=== PATIENT | female | born 1995 | race Caucasian/White ===

== ENCOUNTER 2020-06-30 18:55 | Emergency (ER) | payer OTHER ==
[~2020-06-30] VITALS: Ht 157.5 cm; Wt 74.8 kg
[~2020-06-30 18:55] MED LIST: KETO10TA2 PO; ULTRACET PO
== END 2020-06-30 19:50 | disposition home or self-care (01) ==
LOC: ER 18:55
DX: M94.0 Chondrocostal junction syndrome [Tietze] (principal)

== ENCOUNTER 2022-10-15 10:36 | Emergency (ER) | payer OTHER ==
[~2022-10-15] VITALS: Ht 157.5 cm; Wt 65.8 kg
== END 2022-10-15 15:12 | disposition home or self-care (01) ==
LOC: ER 10:36
DX: K29.70 Gastritis, unspecified, without bleeding (principal); Z20.822 Contact with and (suspected) exposure to COVID-19

== ENCOUNTER 2023-08-23 15:40 | Emergency (ER) | payer OTHER ==
[~2023-08-23] VITALS: Ht 157.5 cm; Wt 68.5 kg
[2023-08-23] MEDS ORDERED: PRENA1 TRUE CO1 EACH (16:05)
[2023-08-23] MEDS ORDERED: FOLIC ACID20 MG (16:05)
[2023-08-23 19:12] LABS: HEMATOCRIT 32.8 % (36.0-45.00); HEMOGLOBIN 10.9 g/dL (12.0-15.00); MEAN CELL VOLUME 85.3 fL (80.00-100.00); MEAN CORPUSCULAR HEMOGLOBIN 28.3 pg (27.00-32.0); MEAN CORPUSCULAR HGB CONC 33.2 g/dl (32.0-36.0); PLATELET COUNT 236 K/uL (150-450); RED BLOOD COUNT 3.85 M/uL (4.00-6.00); RED CELL DISTRIBUTION WIDTH 13.6 % (11.5-14.5)
== END 2023-08-23 21:43 | disposition home or self-care (01) ==
LOC: ER 15:40
PROVIDERS: Emergency Medicine
DX: K05.219 Aggressive periodontitis, localized, unspecified severity (principal)

== ENCOUNTER 2024-01-10 12:05 | Inpatient (IN) | payer OTHER ==
[~2024-01-10] VITALS: Ht 157.5 cm; Wt 77.1 kg
[~2024-01-10 12:05] MED LIST changes: +FOLIC ACID20 MG; +PRENA1 TRUE CO1 EACH
[2024-01-20] MEDS ORDERED: AMPICILLIN SODIUM 2,000 MG VIAL ONE (05:29)
[2024-01-20] MEDS ORDERED: AMPICILLIN SODIUM 2,000 MG VIAL IV STA (05:29)
[2024-01-20] MEDS ORDERED: RINGERS SOLUTION,LACTATED 1,000 ML IV SCH (05:30)
[2024-01-20] MEDS ORDERED: OXYTOCIN 500 ML IV SCH (06:45)
[2024-01-20 07:41] LABS: HEMATOCRIT 32.4 % (36.0-45.00); HEMOGLOBIN 11.1 g/dL (12.0-15.00); MEAN CORPUSCULAR HEMOGLOBIN 29.1 pg (27.00-32.0); MEAN CORPUSCULAR HGB CONC 34.2 g/dl (32.0-36.0); PLATELET COUNT 142 K/uL (150-450); RED BLOOD COUNT 3.81 M/uL (4.00-6.00); RED CELL DISTRIBUTION WIDTH 13.7 % (11.5-14.5)
[2024-01-20] MEDS ORDERED: MEPERIDINE HCL/PF 50 MG/ML VIAL IV STA (07:43)
[2024-01-20] MEDS ORDERED: PROMETHAZINE HCL 25 MG/ML AMPUL IV STA (07:44)
[2024-01-20 07:56] LABS: PH,URINE 7.5 (5.0-8.0); URINE APPEARANCE Cloudy; URINE BILIRRUBIN Negative (NEGATIVE); URINE BLOOD Moderate; URINE COLOR Yellow; URINE GLUCOSE Negative (NEGATIVE); URINE LEUKOCYTE Moderate; URINE NITRATE Negative; URINE PROTEIN Trace (NEGATIVE)
[2024-01-20 07:58] LABS: URINE BACTERIA 195.2 uL (0.0-1933); URINE EPITHELIAL CELLS 26.1 uL (0.0-38.8); URINE RBC 269.8 uL (0.0-20.8); URINE WBC 366.3 uL (0.0-23.2)
[2024-01-20 08:08] LABS: INR < 0.93; PARTIAL THROMBOPLASTIN TIME 26.8 SECONDS (22.0-34.0); PROTHROMBIN TIME 9.6 SECONDS (9.0-11.5)
[2024-01-20 08:25] LABS: ALBUMIN 2.7 gm/dL (3.4-5.0); BILIRUBIN TOTAL 0.34 mg/dL (0.3-1.2); CALCIUM 8.8 mg/dL (8.5-10.1); CREATININE SERUM 0.51 mg/dL (0.55-1.02); GFR 144.65; GLOBULINA 3.7 G/DL (2.4-3.5); POTASSIUM 3.87 mEq/L (3.5-5.1); TOTAL PROTEIN 6.4 gm/dL (6.4-8.2)
[2024-01-20] MEDS ORDERED: AMPICILLIN SODIUM 1,000 MG VIAL IV SCH (09:00)
[2024-01-20] MEDS ORDERED: ERYTHROMYCIN BASE 1 GM TUBE OP ONE ×2 (09:03→11:00)
[2024-01-20] MEDS ORDERED: CHLORHEXIDINE GLUCONATE 120 ML BOTTLE TOP ONE ×2 (09:03→11:00)
[2024-01-20] MEDS ORDERED: OXYTOCIN 20 UNITS/1000ML RL PIGGYBAG IV ONE ×2 (09:03→11:00)
[2024-01-20] MEDS ORDERED: NALOXONE HCL 0.4 MG/ML AMPUL ONE (09:49)
[2024-01-20] MEDS ORDERED: OxyCODONE HCL/APAP UD (PERCOCET) PO PRN (11:00)
[2024-01-20] MEDS ORDERED: ACETAMINOPHEN 325 MG TABLET PO PRN (11:00)
[2024-01-20] MEDS ORDERED: LIDOCAINE HCL 1% 200MG/20ML VIAL IJ ONE (11:00)
[2024-01-20] MEDS ORDERED: HYDROCORTISONE 2.5% 30 GM TUBE RECTAL SCH (13:00)
[2024-01-20] MEDS ORDERED: BENZOCAINE/MENTHOL 90 ML BOTTLE TOP SCH (13:00)
[2024-01-21 02:04] LABS: HEMATOCRIT 28.6 % (36.0-45.00); HEMOGLOBIN 9.6 g/dL (12.0-15.00); MEAN CELL VOLUME 84.4 fL (80.00-100.00); MEAN CORPUSCULAR HEMOGLOBIN 28.3 pg (27.00-32.0); MEAN CORPUSCULAR HGB CONC 33.5 g/dl (32.0-36.0); PLATELET COUNT 139 K/uL (150-450); RED BLOOD COUNT 3.39 M/uL (4.00-6.00); RED CELL DISTRIBUTION WIDTH 14.1 % (11.5-14.5)
== END 2024-01-22 12:17 | disposition home or self-care (01) | DRG 807 ==
LOC: LDR 01-20 05:22 → OB/GYN 01-20 05:22
PROVIDERS: ADMIT Specialist; ATTEND Specialist
PROC: 10E0XZZ Delivery of Products of Conception, External Approach (ICD-10-PCS; principal; 2024-01-20)
PROC: 0W8NXZZ Division of Female Perineum, External Approach (ICD-10-PCS; 2024-01-20)
PROC: 0UQMXZZ Repair Vulva, External Approach (ICD-10-PCS; 2024-01-20)
PROC: 4A1HXCZ Monitoring of Products of Conception, Cardiac Rate, External Approach (ICD-10-PCS; 2024-01-20)
DX: O71.82 Other specified trauma to perineum and vulva (principal); Z37.0 Single live birth; O99.824 Streptococcus B carrier state complicating childbirth; Z3A.38 38 weeks gestation of pregnancy; Z20.822 Contact with and (suspected) exposure to COVID-19

== ENCOUNTER → 2025-03-12 | Emergency (ER) | payer OTHER ==
[~2025-03-12] VITALS: Ht 157.5 cm; Wt 68.5 kg
[~2025-03-12] MED LIST changes: +ACETAMINOPHEN 500 MG GEL..CAP PO ONE; +ORPHENADRINE CITRATE 30 MG/ML AMPUL IM ONE; +ORPHENADRINE CITRATE 30 MG/ML AMPUL ONE
[2025-03-12 21:48] VITALS: BP 101/65; O2SAT 99
[2025-03-13 00:01] LABS: BASO % 0.3 % (0.1-1.2); EOS # 0.06 (0.04-0.54); EOS % 0.5 % (0.7-7.0); HEMATOCRIT 32.7 % (34.1-44.9); HEMOGLOBIN 11.3 g/dL (11.2-15.7); LYMPH # 2.93 (1.18-3.74); LYMPH % 26.2 % (19.3-53.1); MEAN CORPUSCULAR HEMOGLOBIN 28.6 pg (25.6-32.2); MONO # 0.67 (0.24-0.82); NEUT # 7.43 (1.56-6.13); NEUT % 66.3 % (34.0-71.1); PLATELET COUNT 227 K/uL (163-369); RED BLOOD COUNT 3.95 M/uL (3.93-5.22); RED CELL DISTRIBUTION WIDTH 12.7 % (11.6-14.4)
[2025-03-13 00:45] LABS: PH,URINE 6.5 (5.0-8.0); URINE APPEARANCE Cloudy; URINE BILIRRUBIN Negative (NEGATIVE); URINE BLOOD Negative; URINE COLOR Yellow; URINE GLUCOSE Negative (NEGATIVE); URINE KETONE Negative (NEGATIVE); URINE LEUKOCYTE Small; URINE NITRATE Negative; URINE PROTEIN Negative (NEGATIVE)
[2025-03-13 00:49] LABS: URINE BACTERIA 7034.3 uL (0.0-1933); URINE EPITHELIAL CELLS 144.8 uL (0.0-38.8); URINE WBC 128.5 uL (0.0-23.2)
[2025-03-13 00:52] LABS: ALBUMIN 3.4 gm/dL (3.4-5.0); BILIRUBIN TOTAL 0.4 mg/dL (0.3-1.2); CALCIUM 8.5 mg/dL (8.5-10.1); CREATININE SERUM 0.46 mg/dL (0.55-1.02); GFR 161.75; GLOBULINA 3.6 G/DL (2.4-3.5); POTASSIUM 4.31 mEq/L (3.5-5.1)
[2025-03-13 01:19] LABS: URINE CAST 0.73 uL (0.0-1.40)
[2025-03-13 01:38] LABS: URINE TRICHOMONAS FEW
== END | disposition home or self-care (01) ==
LOC: ER 21:29
PROVIDERS: General Practice
DX: O26.899 Other specified pregnancy related conditions, unspecified trimester (principal); Z3A.16 16 weeks gestation of pregnancy; R10.2 Pelvic and perineal pain

== ENCOUNTER 2025-06-30 14:23 | Emergency (ER) | payer OTHER ==
[~2025-06-30] VITALS: Ht 157.5 cm; Wt 79.4 kg
[~2025-06-30 14:23] MED LIST changes: -ACETAMINOPHEN 500 MG GEL..CAP PO ONE; -ORPHENADRINE CITRATE 30 MG/ML AMPUL IM ONE; -ORPHENADRINE CITRATE 30 MG/ML AMPUL ONE
[2025-06-30 14:32] VITALS: BP 123/76; O2SAT 99
[2025-06-30 16:26] LABS: BASO % 0.3 % (0.1-1.2); EOS # 0.04 (0.04-0.54); EOS % 0.4 % (0.7-7.0); LYMPH # 2.02 (1.18-3.74); LYMPH % 22.4 % (19.3-53.1); MEAN PLATELET VOLUME 12.30 fl (9.4-12.4); MONO # 0.71 (0.24-0.82); MONO % 7.9 % (4.7-12.5); NEUT # 6.14 (1.56-6.13); NEUT % 68.0 % (34.0-71.1); RED CELL DISTRIBUTION WIDTH 12.6 % (11.6-14.4)
[2025-06-30 16:55] LABS: ALT/SGPT 14.0 U/L (12-78); AST/SGOT 21.0 U/L (15-37); BILIRUBIN TOTAL 0.45 mg/dL (0.3-1.2); BUN CREA RATIO 16.0 (7.0-25.0); CREATININE SERUM 0.55 mg/dL (0.55-1.02); GFR 131.61; GLOBULINA 4.0 G/DL (2.4-3.5); GLUCOSE FASTING 106.0 mg/dL (65-100); OSMOLALITY SERUM 277.0 MOSM/KG (275-295)
[2025-06-30 17:01] LABS: URINE APPEARANCE Cloudy; URINE BILIRRUBIN Negative (NEGATIVE); URINE BLOOD Negative; URINE COLOR Yellow; URINE GLUCOSE Negative (NEGATIVE); URINE KETONE Negative (NEGATIVE); URINE LEUKOCYTE Moderate; URINE NITRATE Negative; URINE PROTEIN Negative (NEGATIVE); URINE UROBILINOGEN 1.0 E.U./dl
[2025-06-30 17:05] LABS: URINE BACTERIA 967.0 uL (0.0-1933); URINE EPITHELIAL CELLS 15.6 uL (0.0-38.8); URINE WBC 65.9 uL (0.0-23.2)
[2025-06-30 17:14] LABS: URINE CAST 0.00 uL (0.0-1.40); URINE RBC 1.0 uL (0.0-20.8)
[2025-06-30] MEDS ORDERED: DUI500 PO (18:15)
== END 2025-06-30 18:36 | disposition home or self-care (01) ==
LOC: ER 14:23
PROVIDERS: General Practice
DX: O99.891 Other specified diseases and conditions complicating pregnancy (principal); Z3A.31 31 weeks gestation of pregnancy; R30.0 Dysuria

== ENCOUNTER 2025-08-12 00:38 | Inpatient (IN) | payer OTHER ==
[~2025-08-12] VITALS: Ht 157.5 cm; Wt 78.9 kg
[2025-08-12] VITALS (8 sets, daily range): BP systolic 110–143; BP diastolic 58–90
[~2025-08-12 00:38] MED LIST changes: +DUI500 PO
[2025-08-12] MEDS ORDERED: AMPICILLIN SODIUM 2,000 MG VIAL IV STA (00:40)
[2025-08-12] MEDS ORDERED: RINGERS SOLUTION,LACTATED 1,000 ML IV SCH (00:45)
[2025-08-12] MEDS ORDERED: AMPICILLIN TRI500 MG PO (01:03)
[2025-08-12 01:23] LABS: BASO % 0.5 % (0.1-1.2); EOS # 0.02 (0.04-0.54); EOS % 0.2 % (0.7-7.0); LYMPH # 2.70 (1.18-3.74); LYMPH % 29.3 % (19.3-53.1); MONO # 0.66 (0.24-0.82); MONO % 7.2 % (4.7-12.5); NEUT # 5.62 (1.56-6.13); NEUT % 61.2 % (34.0-71.1); RED CELL DISTRIBUTION WIDTH 13.3 % (11.6-14.4)
[2025-08-12 01:25] LABS: URINE APPEARANCE Clear; URINE BILIRRUBIN Negative (NEGATIVE); URINE BLOOD Large; URINE COLOR Yellow; URINE GLUCOSE Negative (NEGATIVE); URINE KETONE Negative (NEGATIVE); URINE LEUKOCYTE Small; URINE NITRATE Negative; URINE UROBILINOGEN 1.0 E.U./dl
[2025-08-12 01:32] LABS: URINE BACTERIA 55.1 uL (0.0-1933); URINE EPITHELIAL CELLS 41.5 uL (0.0-38.8); URINE RBC 110.7 uL (0.0-20.8); URINE WBC 21.2 uL (0.0-23.2)
[2025-08-12 01:36] LABS: URINE CAST 0.29 uL (0.0-1.40); URINE PROTEIN 100 (NEGATIVE)
[2025-08-12 01:41] LABS: INR < 0.93
[2025-08-12 01:45] LABS: ALT/SGPT 16.0 U/L (12-78); AST/SGOT 19.0 U/L (15-37); BILIRUBIN TOTAL 0.36 mg/dL (0.3-1.2); BUN CREA RATIO 20.0 (7.0-25.0); CREATININE SERUM 0.55 mg/dL (0.55-1.02); GFR 130.68; GLOBULINA 3.6 G/DL (2.4-3.5); GLUCOSE FASTING 87.0 mg/dL (65-100); OSMOLALITY SERUM 274.0 MOSM/KG (275-295)
[2025-08-12] MEDS ORDERED: AMPICILLIN SODIUM 1,000 MG VIAL IV SCH (04:00)
[2025-08-12] MEDS ORDERED: OXYTOCIN 20 UNITS/1000ML RL PIGGYBAG IV ONE (05:47)
[2025-08-12] MEDS ORDERED: LIDOCAINE HCL 1% 10ML VIAL ONE (05:47)
[2025-08-12] MEDS ORDERED: CHLORHEXIDINE GLUCONATE 120 ML BOTTLE TOP ONE ×2 (05:47→08:45)
[2025-08-12] MEDS ORDERED: ERYTHROMYCIN BASE OPHT 1GM EACH TUBE OP ONE ×2 (05:47→08:45)
[2025-08-12] MEDS ORDERED: OXYTOCIN 1,000 ML IV SCH (08:45)
[2025-08-12] MEDS ORDERED: ACETAMINOPHEN 500 MG GEL..CAP PO PRN (08:45)
[2025-08-12] MEDS ORDERED: BENZOCAINE/MENTHOL 90 ML BOTTLE TOP SCH (09:00)
[2025-08-12] MEDS ORDERED: HYDROCORTISONE 2.5% 30 GM TUBE RECTAL SCH (09:00)
[2025-08-13 02:43] VITALS: BP 118/76
[2025-08-13 03:03] LABS: BASO % 0.5 % (0.1-1.2); EOS # 0.03 (0.04-0.54); EOS % 0.2 % (0.7-7.0); LYMPH # 3.54 (1.18-3.74); LYMPH % 22.8 % (19.3-53.1); MONO # 1.09 (0.24-0.82); MONO % 7.0 % (4.7-12.5); NEUT # 10.66 (1.56-6.13); NEUT % 68.5 % (34.0-71.1); RED CELL DISTRIBUTION WIDTH 13.4 % (11.6-14.4)
[2025-08-13 08:00] VITALS: BP 126/83
[2025-08-13 17:42] VITALS: BP 109/70
[2025-08-14 01:32] VITALS: BP 121/77
[2025-08-14 08:00] VITALS: BP 120/78
== END 2025-08-14 15:45 | disposition home or self-care (01) | DRG 807 ==
LOC: LDR → OB/GYN 00:38 → LDR 00:38 → OB/GYN 08:20
PROVIDERS: ADMIT Specialist; ATTEND Specialist
PROC: 10E0XZZ Delivery of Products of Conception, External Approach (ICD-10-PCS; principal; 2025-08-12)
PROC: 0UQMXZZ Repair Vulva, External Approach (ICD-10-PCS; 2025-08-12)
PROC: 4A1HXCZ Monitoring of Products of Conception, Cardiac Rate, External Approach (ICD-10-PCS; 2025-08-12)
DX: O71.82 Other specified trauma to perineum and vulva (principal); Z37.0 Single live birth; O69.81X0 Labor and delivery complicated by cord around neck, without compression, not applicable or unspecified; O99.824 Streptococcus B carrier state complicating childbirth; Z3A.37 37 weeks gestation of pregnancy